=== PATIENT | female | born 1955 | race Hispanic/Latino ===

== ENCOUNTER 2025-11-07 08:10 | Observation (INO) | payer OTHER ==
[~2025-11-07] VITALS: Ht 165.1 cm; Wt 113.3 kg
[2025-11-07 08:54] LABS: IMMATURE GRANULOCYTE ABSOLUTE 0.01 K/uL (0-1); NUCLEATED RED BLOOD CELLS 0.0 % (0.0-0.19); PLATELET COUNT (AUTO) 156 K/uL (130-400); RED BLOOD CELL COUNT(AUTO) 4.25 MIL/uL (4.00-5.50); RED CELL DISTRIBUTION WIDTH 12.5 % (11.0-15.5); WHITE BLOOD COUNT (AUTO) 6.0 K/uL (4.8-10.8)
[2025-11-07 09:05] LABS: CREATININE 0.8 mg/dL (0.5-1.0); GLOMERULAR FILTR. RATE CALC 79.0 mL/min (>90); GLUCOSE,RANDOM 155.0 mg/dL (70-105); SODIUM SERUM 138.0 mmol/L (136-145); UREA NITROGEN, BLOOD 10.0 mg/dL (7-18)
[2025-11-07 09:10] LABS: CREATINE KINASE, TOTAL 45.0 U/L (21-232)
--- NOTE | 2025-11-07 09:28 | HMCIMG ---
EXAM: CT Head Without IV contrast. CLINICAL HISTORY: fall TECHNIQUE: Axial computed tomography images of the head/brain without intravenous contrast. COMPARISON: None provided. FINDINGS: BRAIN: No evidence of acute hemorrhage. No mass lesion. No CT evidence for acute territorial infarct. No midline shift or extra-axial collections. VENTRICLES: No hydrocephalus. ORBITS: The orbits are unremarkable. SINUSES AND MASTOIDS: The paranasal sinuses and mastoid air cells are clear. BONES: No fracture. SOFT TISSUES: Unremarkable. IMPRESSION: No acute intracranial abnormality. /[place]
--- NOTE | 2025-11-07 09:30 | EKG ---
[facility] Test Date: 2025-11-07 Test Time: 08:51:03 Pat Name: BHAKTI GARRIDO Department: ED Room: Gender: F Manager Shell: [birth year] : 1955 Requested By: FRANCISCO CORTEZ Order Number: [id number] Reading MD: Carolina Montalvo Measurements Intervals [place] Rate: 77 P: 39 AK: 168 QRS: -52 QRSD: 139 T: 16 QT: 422 QTc: 479 Interpretive Statements Sinus rhythm RBBB and LAFB No previous ECG available for comparison Electronically Signed On 11-07-2025 10:05:14 [employer]PER[employer] by Carolina Montalvo Please click the below link to view image of tracing.
--- NOTE | 2025-11-07 09:57 | HMCIMG ---
EXAM: CT Cervical Spine Without IV contrast. CLINICAL HISTORY: fall TECHNIQUE: Axial computed tomography images of the cervical spine without intravenous contrast. Sagittal and coronal reformatted images were generated. COMPARISON: None provided. FINDINGS: ALIGNMENT: Very minimal grade I anterolisthesis of C3 over C4 vertebral body. DEGENERATIVE CHANGES: Spondylotic changes with straightening of the spine. Reduced disc spaces from C4 to C7 level. Minimal disc osteophyte complexes at the C5-C6 and C6-C7 levels, probably indenting the bilateral exiting nerve roots. No obvious cord indentation SOFT TISSUES: The prevertebral soft tissues are within normal limits. BONES: No acute fracture or aggressive appearing osseous lesion. IMPRESSION: No acute cervical spine abnormality. Spondylotic changes with straightening of the spine, with reduced disc spaces from the C4 to C7 level. Minimal disc osteophyte complexes at the C5-C6 and C6-C7 levels, probably indenting the bilateral exiting nerve roots. Very minimal grade I anterolisthesis of C3 over C4 vertebral body. /[place]
--- NOTE | 2025-11-07 10:02 | HMCIMG ---
EXAM: CR Chest, 1 View. CLINICAL HISTORY: fall COMPARISON: None provided. FINDINGS: LUNGS: There is no mass, infiltrate, or acute pulmonary abnormality. PLEURAL SPACES: No pleural effusion or pneumothorax. MEDIASTINUM: The cardiomediastinal silhouette is within normal limits. BONES: No acute osseous abnormality. IMPRESSION: No acute cardiopulmonary pathology is evident. /[place]
--- NOTE | 2025-11-07 12:09 | ERN ---
ED Note History of Present Illness Stated Complaint: BACK PAIN Chief Complaint: Back Pain or Injury Time Seen by MD: 08:14 Dictation: 70-year-old female presenting to the emergency department for headache and neck pain as well as upper back pain after fall a few days ago. Patient also reports her blood pressures has been elevated. No chest pain no shortness a breath. Allergies: Coded Allergies: Penicillins (Unverified Allergy, Unknown, 11/07/25) Past Medical History Past Medical History: A-Fib, COPD, Diabetes-Type II, High Cholesterol, Hypertension Surgical History: Tonsillectomy, Other Surgical History Other: LEFT LEG SX Review of System Dictation Constitutional: Negative for fever,chills, and weight loss Eyes: Negative for injury, pain,redness, and discharge ENT: Negative for injury,pain or swelling Cardiovascular: Negative for chest pain, palpitations, and edema Respiratory: Negative for shortness of breath, cough, and wheezing, Abdomen/GI: Negative for abdominal pain, nausea, vomiting, diarrhea, and consti pation Back: Negative for injury and pain : Negative for injury, bleeding and discharge MS/Extremity: Per HPI Skin: Negative for rash, and discoloration Neuro: Per HPI Initial Vital Sign VS Vital Signs Date Time Temp Pulse Resp B/P (MAP) Pulse Ox O2 Delivery O2 Flow Rate FiO2 11/07/25 08:11 97.9 81 16 131/77 96 Room Air 0 11/07/25 08:41 21 Physical Exam Dictation General: awake, alert, appears uncomfortable Head/Face: Normocephalic, atraumatic Eyes: PERRL, EOMI, vision at baseline ENT: oral cavity clear, TMs clear, no signs of infection Neck: Trachea midline, supple, no nuchal rigidity Cardiovascular: RRR, normal S1/S2, No MRGs, no JVD Respiratory: CTAB, no respiratory distress, No rales or wheezes Abdomen: Soft, non-tender, non-distended, normal bowel sounds, no guarding or rebound. Skin: Warm, dry, normal turgor, no rash MS/Extremity: Pulses equal, no cyanosis, neurovascular intact, FROM Neuro: COAx4, GCS 15, strength 5/5, CN 2-12 intact, normal cerebellar exam, Results (Laboratory/Radiology) Laboratory/Radiology Laboratory Tests Test 12/10/25 08:46 White Blood Count 6.0 K/uL (4.8-10.8) Red Blood Count 4.25 MIL/uL (4.00-5.50) Hemoglobin 12.8 g/dL (12.0-16.0) Hematocrit 38.3 % (36-48) Mean Corpuscular Volume 90.1 fL (79-99) Mean Corpuscular Hemoglobin 30.1 pg (27.0-33.0) Mean Corpuscular Hemoglobin Concent 33.4 g/dL (32.0-36.0) Red Cell Distribution Width 12.5 % (11.0-15.5) Platelet Count 156 K/uL (130-400) Mean Platelet Volume 9.4 fL (7.5-10.5) Immature Granulocyte % (Auto) 0.2 % (0-1) Neutrophils (%) (Auto) 67.3 % (40.0-77.0) Lymphocytes (%) (Auto) 23.9 % (21.0-51.0) Monocytes (%) (Auto) 7.6 % (3.0-13.0) Eosinophils (%) (Auto) 0.7 % (0.0-8.0) Basophils (%) (Auto) 0.3 % (0.0-5.0) Neutrophils # (Auto) 4.1 K/uL (1.8-7.7) Lymphocytes # (Auto) 1.4 K/uL (1.0-4.8) Monocytes # (Auto) 0.5 K/uL (0.1-1.0) Eosinophils # (Auto) 0.04 K/uL (0.00-0.70) Basophils # (Auto) 0.02 K/uL (0.00-0.20) Absolute Immature Granulocyte (auto 0.01 K/uL (0-1) Nucleated Red Blood Cells 0.0 % (0.0-0.19) Sodium Level 138 mmol/L (136-145) Potassium Level 4.1 mmol/L (3.5-5.1) Chloride Level 103 mmol/L (101-111) Carbon Dioxide Level 28 mmol/L (21-32) Blood Urea Nitrogen 10 mg/dL (7-18) Creatinine 0.8 mg/dL (0.5-1.0) Glomerular Filtration Rate Calc 79 mL/min (>90) Random Glucose 155 mg/dL (70-105) H Total Calcium 8.6 mg/dL (8.5-10.1) Total Creatine Kinase 45 U/L (21-232) Troponin I High Sensitivity 12 ng/L (4-50) Labs Reviewed?: Yes EKG: (+) NSR, (+) nonspecific ST T wave chg, (+) nonspecific ST T wave chg, (+) unchanged ED Course ED Course Orders Procedure Category Date Status Time Ct Cervical Spine W/O CT 11/07/25 Resulted Contrast 08:39 12 Lead Ekg Tracing- EKG 11/07/25 Resulted Technical 08:39 Cbc With Differential LAB 11/07/25 Complete 08:39 Creatine Kinase, Total LAB 11/07/25 Complete 08:39 Basic Metabolic Panel LAB 11/07/25 Complete 08:39 Troponin I High LAB 11/07/25 Complete Sensitivity 08:39 Chest 1vw RAD 11/07/25 Resulted 08:39 Ct Head/Brain W/O CT 11/07/25 Resulted Contrast 08:39 Morphine 4mg Syg PHA 11/07/25 Complete (Morphine 4mg Syg) 08:39 Ondansetron 4mg Inj PHA 11/07/25 In Process (Zofran 4mg Inj) 08:39 Hydralazine 20mg Inj PHA 11/07/25 Complete (Apresoline 20mg In 10:39 Diazepam 5 Mg/Ml 2 Ml PHA 11/07/25 Complete Syg (Valium 5 Mg/M 10:39 Current Medications Medications (Trade) Dose Ordered Sig/Avis Route PRN Reason Start Time Stop Time Status Last Admin Dose Admin Diazepam (VALium 5 MG/ML 2 ML SYG) 5 mg ONCE STAT IVP 11/07/25 10:39 11/07/25 10:43 DC 11/07/25 10:47 Hydralazine HCl (APRESOLine 20MG INJ) 10 mg ONCE STAT IV 11/07/25 10:39 11/07/25 10:43 DC 11/07/25 10:46 Morphine Sulfate (morPHINE 4MG SYG) 4 mg ONCE STAT IVP 11/07/25 08:39 11/07/25 08:44 DC 11/07/25 09:28 Ondansetron HCl (zoFRAN 4MG INJ) 4 mg ONCE STAT IVP 11/07/25 08:39 11/07/25 08:44 DC 11/07/25 09:27 Vital Signs Date Time Temp Pulse Resp B/P (MAP) Pulse Ox O2 Delivery O2 Flow Rate FiO2 11/07/25 11:07 98.6 82 16 132/62 96 Room Air* 0 21 11/07/25 10:46 76 210/105 11/07/25 10:34 98.6 76 16 210/105 95 Room Air* 0 21 11/07/25 08:41 98.6 76 18 182/142 98 Room Air* 0 21 11/07/25 08:11 97.9 81 16 131/77 96 Room Air 0 Medical Decision Making MDM MDM: Differential diagnosis: Rationale: Tests considered and ordered secondary to shared decision making include: labs, ECG and radiology Previous outside records reviewed: Old ER visits. Risk of complication and/or morbidity or mortality of patient management: None Medications-Per medication reconciliation Need for hospitalization: Patient does meet criteria for hospitalization. Need for emergency major/minor surgery: No There are no social concerns with this patient. Prescription drug management Prescriptions will include symptomatic care Patient's prior external medical records from other ER visits were reviewed by me as indicated. Prior testing and results from previous visits were reviewed. Prior tests were taken into account with medical decision making and resource utilization, independent historian/historians were used to obtain complete medical history. I independently interpreted the test that were performed, results were reviewed by me and considered findings on radiology if ordered. Medical management and examination interpretation discussions were had by me with other qualified healthcare professionals as indicated for the patient's care. 70-year-old female with ground level fall, stable exam and hypertensive episode, given pain meds and hypertension medication, admitting for further care and evaluation. DX & DISP Disposition: Inpatient Departure Impression: Primary Impression: Episode of hypertension Additional Impression: Fall Condition: Stable Referrals: KULDIP JESUS MD (PCP) FRANCISCO CORTEZ MD Nov 07, 2025 12:08
[2025-11-07 12:30] LABS: APPEARANCE,URINE CLOUDY (CLEAR); GLUCOSE, URINE (UA) NEGATIVE (NEGATIVE); LEUKOCYTE ESTERASE ,URINE 500 Leu/uL (NEGATIVE); NITRATE,URINE 1+ (NEGATIVE); OCCULT BLOOD,URINE NEGATIVE (NEGATIVE)
[2025-11-07 12:30] LABS: INR 1.21 (0.85-1.15)
[2025-11-07 12:32] LABS: ADD UA MICROSCOPIC YES
[2025-11-07 12:34] LABS: ASPARTATE AMINOTRANSFERASE 48.0 U/L (10-37); TOTAL PROTEIN, SERUM 6.6 g/dL (6.0-8.3)
[2025-11-07 13:00] LABS: SQUAMOUS EPITHELIAL CELL,UR FEW /HPF (0-2)
[2025-11-07] MEDS ORDERED: DEXTROSE 50%-WATER 50 ML DISP.SYRIN IV PRN (13:00)
[2025-11-07] MEDS ORDERED: GLUCAGON 1MG KIT 1 MG ML IM PRN (13:00)
[2025-11-07 13:04] VITALS: PULSE 86; RESP 21; O2SAT 97
[2025-11-07] MEDS: LIDOCAINE 5% TOPICAL PATCH TP SCH (13:14)
[2025-11-07] MEDS: LISINOPRIL 20 MG TABLET PO SCH (13:15)
[2025-11-07] MEDS: 0.9%NACL 1000ML 1,000 ML IV SCH (13:16)
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
--- NOTE | 2025-11-07 14:40 | HMCIMG ---
EXAM: CT Chest Without IV contrast. CLINICAL HISTORY: recent fall, mid sternal chest pain, mid back pain as well, r/o any abnorma TECHNIQUE: Axial computed tomography images of the chest without intravenous contrast. COMPARISON: None provided. FINDINGS: LUNGS: 6 mm pulmonary nodule inferior right upper lobe (series 2, image 24), requires follow up imaging based on Fleischner's criteria. Otherwise lungs are clear. PLEURAL SPACES: No evidence of pneumothorax. No pleural effusion. HEART: No cardiomegaly. No significant pericardial effusion. LYMPH NODES: No lymphadenopathy is evident. UPPER ABDOMEN: The upper abdominal solid organs are unremarkable. BONES: No acute osseous abnormality. IMPRESSION: 1. 6 mm pulmonary nodule inferior right upper lobe (series 2, image 24), requires follow up imaging based on Fleischner's criteria. 2. Otherwise lungs are clear. 3. No acute osseous findings. /[place]
--- NOTE | 2025-11-07 15:15 | HMCIMG ---
EXAM: US for Deep Venous Thrombosis, bilateral Lower Extremity. CLINICAL HISTORY: Leg Pain and Swelling TECHNIQUE: Real-time ultrasound scan of the veins of the bilateral lower extremity with color Doppler flow, spectral waveform analysis and compression. COMPARISON: None provided. FINDINGS: DEEP VEINS: The common femoral, superficial femoral, and popliteal veins are echolucent and compressible. There is normal color Doppler flow throughout. The visualized calf veins appear patent. SOFT TISSUES: No popliteal fossa cyst or other abnormalities. IMPRESSION: No deep venous thrombosis evident on bilateral lower extremity examination. /[place]
[2025-11-07 15:26] LABS: CREATINE KINASE, TOTAL 42.0 U/L (21-232)
--- NOTE | 2025-11-07 16:05 | NUR ---
DCP:HOME Pt currently lives at home alone. Pt states that she has a walker, cane, and wheelchair at home that she uses to ambulate. Pt has a provider that works with her 20 hrs a week to assist with all ADLs, home management, and meals. PCP is Dr. Benigno Corley and uses [facility] for any RX needs. At [place] pt will want to go home and family can assist with transportation.
[2025-11-07] MEDS: AZTREONAM 1 GM VIAL IVPB SCH (18:34)
[2025-11-07 20:00] VITALS: O2SAT 96
[2025-11-07 20:08] VITALS: PULSE 84; RESP 18; O2SAT 97
[2025-11-07] MEDS: RIVAROXABAN 20 MG TABLET PO SCH (20:40)
[2025-11-07] MEDS: FAMOTIDINE 20MG TAB PO SCH (20:40)
[2025-11-07] MEDS: (Icosapent Ethyl (Vascepa) 1 GM) PO SCH (20:41)
--- NOTE | 2025-11-07 22:42 | CONS ---
CONSULT NOTE: CARDIOLOGY Reason for consult: Atrial fibrillation, fall HPI/story at presentation: This is a pleasant 7-year-old female with past medical history as below presents for management of a fall that she had at home. Patient has been having issues with weakness but came in with a mechanical fall, no syncopal spell. Cardiology was consulted because of known atrial fibrillation, EKG changes. Past medical history: See below Allergies, Meds See chart Review of systems Review of Systems Constitutional: Negative for chills and fever. HENT: Negative for ear discharge and ear pain. Eyes: Negative for photophobia and discharge. Respiratory: Negative for cough, sputum production and stridor. Cardiovascular: Negative for chest pain and palpitations. Gastrointestinal: Negative for diarrhea and vomiting. Genitourinary: Negative for frequency. Musculoskeletal: Negative for myalgias. Skin: Negative for rash. Neurological: Negative for focal weakness and seizures. Endo/Heme/Allergies: Negative for polydipsia. Psychiatric/Behavioral: Negative for hallucinations. Vitals see chart PHYSICAL EXAMINATION GENERAL: The patient is alert and oriented*3 HEENT: Nonicteric sclerae, non traumatic HEART: Regular rate and rhythm with no murmurs LUNGS: Clear to auscultation bilaterally ABDOMEN: No acute issues, non tender GENITAL, RECTAL: deferred SKIN: No rash NEUROLOGIC: NFND EXTREMITIES: No edema ASSESSMENT ATRIAL FIBRILLATION History of FALL At presentation, mechanical HYPERTENSION, OBESITY, HYPERLIPIDEMIA, SLEEP APNEA, DIABETES CORE MEASURES Pending OTHER MEDICAL PROBLEMS Bronchitis Left knee replacement PLAN 11/07/2025 patient is currently lethargic but no active cardiovascular complaints at this time. No history of atrial fibrillation, currently on Xarelto for anticoagulation. Rate remain controlled at this time. Also on statins. Echocardiogram has been ordered and pending. Further recommendations post. Seen and examined 11/07/2025 at around 9 PM. ATTESTATION I was involved substantially in the care of this patient Number and complexity of problems addressed: 1 acute illness with systemic features Amount and or complexity of data Review of prior external note(s) from each unique source: 2+ Ordering of each unique test : 1 Review of the result(s) of each unique test: 2+ Assessment requiring an independent historian(s): No Independent interpretation of test performed by another MD/QHCP/appropriate source (not separately reported) : No Discussion of management or test interpretation with external MD/QHCP/appropriate source (not separately reported) : No Risk status (cardiac, billing related): Moderate LILI MCDANIELS MD Nov 07, 2025 22:42
[2025-11-07 23:30] VITALS: BP 104/56; PULSE 79; RESP 20; TEMP 98.8
--- NOTE | 2025-11-07 23:30 | NUR ---
ADMISSION NOTE PATIENT ARRIVED VIA ER. PATIENT ALERT, ORIENTED, ABLE TO MAKE NEEDS KNOWN. PATIENT MEDICATION RECONCILIATION DONE, CONFIRMED MEDICATIONS WITH PATIENT. PATIENT ORIENTED TO CALL LIGHT, AND UNIT FALL POLICIES. CALL LIGHT WITHIN REACH OF PATIENT.
[2025-11-08] VITALS (16 sets, daily range): BP systolic 135–147; BP diastolic 65–74; PULSE 73–93; RESP 17–20; TEMP 98.1–98.7; O2SAT 95–100
[2025-11-08 06:10] LABS: IMMATURE GRANULOCYTE ABSOLUTE 0.03 K/uL (0-1); NUCLEATED RED BLOOD CELLS 0.0 % (0.0-0.19); PLATELET COUNT (AUTO) 186 K/uL (130-400); RED BLOOD CELL COUNT(AUTO) 4.25 MIL/uL (4.00-5.50); RED CELL DISTRIBUTION WIDTH 12.7 % (11.0-15.5); WHITE BLOOD COUNT (AUTO) 7.3 K/uL (4.8-10.8)
[2025-11-08 06:34] LABS: CREATININE 0.7 mg/dL (0.5-1.0); GLOMERULAR FILTR. RATE CALC 93.0 mL/min (>90); GLUCOSE,RANDOM 149.0 mg/dL (70-105); SODIUM SERUM 139.0 mmol/L (136-145); UREA NITROGEN, BLOOD 12.0 mg/dL (7-18)
[2025-11-08] MEDS: LORATAdine 10 mg 10 MG TABLET PO SCH (08:47)
--- NOTE | 2025-11-08 11:15 | NUR ---
Spoke to patient who stated she had a headache and needed something for pain. Tamia, nurse, notified.
[2025-11-08 12:07] LABS: ASPARTATE AMINOTRANSFERASE 36.0 U/L (10-37); TOTAL PROTEIN, SERUM 6.5 g/dL (6.0-8.3)
--- NOTE | 2025-11-08 14:00 | NUR ---
SPOKE TO PATIENT AND HER SISTER AT BEDSIDE. SIS TER STATES PATIENT WILL GO HOME WITH HER, SHE DOES NOT MOVE WELL ENOUGH TO GO HOME ALONE. CONCERNED RE PLAN OF CARE, ADVISED HER THAT THIS CM HAD ALREADY SECURED AN APPOINTMENT AT [facility] FOR WEDNESDAY AT 330 PM. ADVISED HER THAT THE MEDICATION FO THE MUSCLE SPASM AND BACK PAIN WILL TAKE SOME TIME TO WORK, AND GENTLE EXERCISE/STRETCHING WILL BE HELPFUL. VERBALIZED UNDERSTANDING OF SAME. DC PLAN: HOME WITH SISTER
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
--- NOTE | 2025-11-08 21:14 | PN ---
CARDIOLOGY Reason for consult: Atrial fibrillation, fall HPI/story at presentation: This is a pleasant 7-year-old female with past medical history as below presents for management of a fall that she had at home. Patient has been having issues with weakness but came in with a mechanical fall, no syncopal spell. Cardiology was consulted because of known atrial fibrillation, EKG changes. Past medical history: See below Allergies, Meds See chart Review of systems Review of Systems Constitutional: Negative for chills and fever. HENT: Negative for ear discharge and ear pain. Eyes: Negative for photophobia and discharge. Respiratory: Negative for cough, sputum production and stridor. Cardiovascular: Negative for chest pain and palpitations. Gastrointestinal: Negative for diarrhea and vomiting. Genitourinary: Negative for frequency. Musculoskeletal: Negative for myalgias. Skin: Negative for rash. Neurological: Negative for focal weakness and seizures. Endo/Heme/Allergies: Negative for polydipsia. Psychiatric/Behavioral: Negative for hallucinations. Vitals see chart PHYSICAL EXAMINATION GENERAL: The patient is alert and oriented*3 HEENT: Nonicteric sclerae, non traumatic HEART: Regular rate and rhythm with no murmurs LUNGS: Clear to auscultation bilaterally ABDOMEN: No acute issues, non tender GENITAL, RECTAL: deferred SKIN: No rash NEUROLOGIC: NFND EXTREMITIES: No edema ASSESSMENT ATRIAL FIBRILLATION History of FALL At presentation, mechanical HYPERTENSION, OBESITY, HYPERLIPIDEMIA, SLEEP APNEA, DIABETES CORE MEASURES Pending OTHER MEDICAL PROBLEMS Bronchitis Left knee replacement PLAN 11/07/2025 patient is currently lethargic but no active cardiovascular complaints at this time. No history of atrial fibrillation, currently on Xarelto for anticoagulation. Rate remain controlled at this time. Also on statins. Echocardiogram has been ordered and pending. Further recommendations post. Seen and examined 11/07/2025 at around 9 PM. 11/08/2025 Mental status is better, remains on anticoagulation with Xarelto, echocardiogram with normal function. Continue conservative measures from a cardiac standpoint. Seen and examined 11/08/2025 at around 9 PM ATTESTATION I was involved substantially in the care of this patient Number and complexity of problems addressed: 1 acute illness with systemic features Amount and or complexity of data Review of prior external note(s) from each unique source: 2+ Ordering of each unique test : 1 Review of the result(s) of each unique test: 2+ Assessment requiring an independent historian(s): No Independent interpretation of test performed by another MD/SAIRAP/appropriate source (not separately reported) : No Discussion of management or test interpretation with external MD/QBABATUNDEP/appropriate source (not separately reported) : No Risk status (cardiac, billing related): Moderate Vitals/Labs Vital Signs Date Time Temp Pulse Resp B/P (MAP) Pulse Ox O2 Delivery O2 Flow Rate FiO2 11/08/25 20:10 93 20 N/A Room Air 21 11/08/25 15:42 98.8 138/66 96 11/08/25 08:00 0 Laboratory Tests 11/08/25 05:54 Medications Current Medications Morphine Sulfate 4 mg ONCE STAT IVP Last administered on 11/07/25at 09:28; Start 11/07/25 at 08:39; Stop 11/07/25 at 08:44; Status DC Ondansetron HCl 4 mg ONCE STAT IVP Last administered on 11/07/25at 09:27; Start 11/07/25 at 08:39; Stop 11/07/25 at 08:44; Status DC Hydralazine HCl 10 mg ONCE STAT IV Last administered on 11/07/25at 10:46; Start 11/07/25 at 10:39; Stop 11/07/25 at 10:43; Status DC Diazepam 5 mg ONCE STAT IVP Last administered on 11/07/25at 10:47; Start 11/07/25 at 10:39; Stop 11/07/25 at 10:43; Status DC Acetaminophen 650 mg Q8H PO Last administered on 11/08/25at 14:08; Start 11/07/25 at 12:30; Stop 12/07/25 at 12:29 Lidocaine 1 patch DAILY TP Last administered on 11/08/25at 08:47; Start 11/07/25 at 12:30; Stop 12/07/25 at 12:29 Morphine Sulfate 2 mg Q6H PRN IVP Last administered on 11/08/25at 11:42; Start 11/07/25 at 12:30; Stop 11/14/25 at 12:29 Ipratropium [place] 0.5 mg Q6H PRN IH Last administered on 11/08/25at 20:09; Start 11/07/25 at 12:30; Stop 12/07/25 at 12:29 Famotidine 20 mg BID PO Last administered on 11/08/25at 08:46; Start 11/07/25 at 21:00; Stop 12/07/25 at 20:59 Hydralazine HCl 10 mg Q6H PRN IV; Start 11/07/25 at 12:30; Stop 12/07/25 at 12:29 Insulin Human Regular INSULIN SLIDING SCAL... ACHS SQ Last administered on 11/08/25at 11:54; Start 11/07/25 at 16:30; Stop 12/07/25 at 16:29 Dextrose 50 ml AD PRN IV; Start 11/07/25 at 13:00; Stop 12/07/25 at 12:59 Glucagon 1 mg AD PRN IM; Start 11/07/25 at 13:00; Stop 12/07/25 at 12:59 Lisinopril 20 mg Q24H PO Last administered on 11/07/25at 13:15; Start 11/07/25 at 13:00; Stop 12/07/25 at 12:59 Metoprolol Tartrate 50 mg Q12H PO Last administered on 11/08/25at 14:08; Start 11/07/25 at 13:00; Stop 12/07/25 at 12:59 Pantoprazole Sodium 40 mg Q24H PO; Start 11/07/25 at 13:00; Stop 11/07/25 at 13:01; Status DC Montelukast Sodium 10 mg HS PO Last administered on 11/07/25at 20:40; Start 11/07/25 at 21:00; Stop 12/07/25 at 20:59 Fluticasone Propionate 1 SPRAY BID EN Last administered on 11/08/25at 08:47; Start 11/07/25 at 21:00; Stop 12/07/25 at 20:59 Duloxetine HCl 60 mg DAILY PO Last administered on 11/08/25at 08:46; Start 11/08/25 at 09:00; Stop 12/08/25 at 08:59 Atorvastatin Calcium 40 mg HS PO Last administered on 11/07/25at 20:41; Start 11/07/25 at 21:00; Stop 12/07/25 at 20:59 Sodium Chloride 1,000 ml @ 50 mls/hr Q20H IV Last administered on 11/07/25at 13:16; Start 11/07/25 at 13:00; Stop 12/07/25 at 12:59 Methocarbamol 500 mg Q12H PO Last administered on 11/08/25at 14:08; Start 11/07/25 at 13:00; Stop 12/07/25 at 12:59 Aztreonam 1 gm Q8H IVPB Last administered on 11/08/25at 14:07; Start 11/07/25 at 13:30; Stop 11/17/25 at 13:29 Loratadine 10 mg DAILY PO Last administered on 11/08/25at 08:47; Start 11/08/25 at 09:00; Stop 12/08/25 at 08:59 Rivaroxaban 20 mg HS PO Last administered on 11/07/25at 20:40; Start 11/07/25 at 21:00; Stop 12/07/25 at 20:59 Home Med (Icosapent Ethyl (Vasce... BID PO; Start 11/07/25 at 21:00; Stop 12/07/25 at 20:59 LILI MCDANIELS MD Nov 08, 2025 21:14
[2025-11-09] VITALS: BP 167/89; PULSE 87; RESP 20; TEMP 98.3
[2025-11-09 04:00] VITALS: BP 140/83; PULSE 78; RESP 20; TEMP 98.6
[2025-11-09 04:39] LABS: IMMATURE GRANULOCYTE ABSOLUTE 0.03 K/uL (0-1); NUCLEATED RED BLOOD CELLS 0.0 % (0.0-0.19); PLATELET COUNT (AUTO) 191 K/uL (130-400); RED BLOOD CELL COUNT(AUTO) 4.28 MIL/uL (4.00-5.50); RED CELL DISTRIBUTION WIDTH 12.7 % (11.0-15.5); WHITE BLOOD COUNT (AUTO) 8.0 K/uL (4.8-10.8)
[2025-11-09 04:55] LABS: ASPARTATE AMINOTRANSFERASE 41.0 U/L (10-37); CREATININE 0.7 mg/dL (0.5-1.0); GLOMERULAR FILTR. RATE CALC 93.0 mL/min (>90); GLUCOSE,RANDOM 152.0 mg/dL (70-105); SODIUM SERUM 139.0 mmol/L (136-145); TOTAL PROTEIN, SERUM 6.7 g/dL (6.0-8.3); UREA NITROGEN, BLOOD 13.0 mg/dL (7-18)
[2025-11-09 07:14] VITALS: PULSE 90; RESP 20
[2025-11-09 07:16] VITALS: PULSE 87; RESP 20; O2SAT 94
[2025-11-09 09:09] VITALS: BP 144/91; PULSE 84; RESP 20; TEMP 98.4
[2025-11-09 12:38] VITALS: BP 144/82; PULSE 95; RESP 20; TEMP 98.5
[2025-11-09] MEDS: MAGNESIUM 2GM PREMIX 50ML 50 ML IV PRN (14:30)
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
--- NOTE | 2025-11-09 15:40 | NUR ---
DISCHARGE SISTER AT BEDSIDE. PT A&OX4. PT AWARE OF APPOINTMENT WITH DR. FREY ON 11/12/25 AT 09:45AM AND PT STATES APPOINTMENT WITH PCP ON 11/12/25 AT 1520. PT AWARE OF NEW PRESCRIPTIONS SENT TO PHARMACY. TEACHINGS GIVEN TO PT FOR BP LOG, FALL PRECAUTIONS, AND MEDICATIONS.
--- NOTE | 2025-11-09 15:49 | NUR ---
HOME MEDS HOME MEDICATIONS: JEREMY HANDED TO PT.
--- NOTE | 2025-11-09 19:00 | NUR ---
NIECE CALLED VERY UPDSET STATES SHE COULD NOT UNDERSTAND WHY HER AUNT HAD BEEN ADMITTED AND WHAT MEDS SHE WAS ON. STATES HER MOTHER CANNOT EXPLAIN. SUMMARY OF ADMISSION AND PLAN OF CARE GIVEN. NIECE STATED MUCH MORE AWARE/REASSURE. ENCOURAGED NIECE TO ASSIST IN ENSURING THAT PATIENT CONTINUES MEDS ORDERED, GENTLE EXERCISE, TAKING BP DAILY AND RECORDING. VERBALIZED UNDERSTANDING OF SAME
--- NOTE | 2025-11-10 13:11 | HMCSR ---
APPROVED REPORT EXAM: Two-dimensional and M-mode echocardiogram with Doppler and color Doppler. INDICATION ICD: Pre-Op 2D Dimensions RVDd 3.3 cm LVEF(%) 88.8 (>50%) LVED Vol(simp.) 96.0 mL IVSd 1.0 (0.7-1.1cm) FS(%) 58 % LVES Vol(simp.) 35.0 mL LVDd 3.6 (3.8-5.6cm) LA (2D) 3.5 (1.6-4.0cm) LVEF(%, simp.) 63 % PWd 1.1 (0.7-1.1cm) Ao Root(2D) 2.9 (2.0-3.7cm) LA ESV INDEX (BP) 19.53 mL/m2 LVDs 1.5 (2.5-4.0cm) LVOT diam 2.2 (1.8-2.4cm) IVC diam 2.1 cm Deformation Strain Apical 4 -17.3 % Apical 2 -15.9 % Apical 3 -18.0 % Global Strain -17.1 % M-Mode Dimensions EPSS 0.8 cm LA (MM) 3.6 (1.6-4.0cm) Ao Root(MM) 2.5 (2.0-3.7cm) Aortic Valve AoV Vmax 1.6 m/s Ao Peak GR 10.1 mmHg LVOT Vmax 1.1 m/s AoV VTI 0.4 m Ao Mean GR 6.1 mmHg LVOT VTI 0.24 m POWER (VMAX) 2.62 cm2 POWER (VTI) 2.4 cm2 Mitral Valve MV E Vmax 66.7 cm/s DECEL Time 320 ms MV A Vmax 104.0 cm/s P 1/2 T 66 ms E/A ratio 0.6 MVA (PHT) 3.4 cm2 TDI E/E' Medial 10.9 E/E' Lateral 8.7 Medial E' Peak V 6.14 cm/s Lateral E' Peak V 7.71 cm/s Left Ventricle The left ventricle is normal size. Normal wall motion There is normal left ventricular wall thickness. LVEF is 60-65%. The left ventricular diastolic function is normal. Right Ventricle The right ventricle is normal size. The right ventricular systolic function is normal. Atria The left atrium size is normal. The right atrium size is normal. Aortic Valve The aortic valve is normal in structure. No aortic regurgitation is present. There is no aortic valvular stenosis. Mitral Valve The mitral valve is normal in structure. There is no evidence of significant mitral regurgitation. There is no mitral valve stenosis. Tricuspid Valve The tricuspid valve is normal in structure. There is no tricuspid valve regurgitation noted. Pulmonic Valve The pulmonary valve is normal in structure. There is no pulmonic valvular regurgitation. Great Vessels The aortic root is normal in size. The IVC is normal in size and collapses >50% with inspiration. Pericardium There is no pericardial effusion. Conclusion LVEF is 60-65%. The left ventricular diastolic function is normal. There is normal left ventricular wall thickness. The left ventricle is normal size. Normal wall motion There is no pericardial effusion. Study quality was adequate
== END 2025-11-09 15:55 | disposition home or self-care (01) ==
LOC: EDH 08:10 → UNDOADMOB 12:02 → EDHIP 12:02 → INTOOBSV 12:02 → EDHIP 23:21 → 3DH 23:21
PROVIDERS: ADMIT Internal Medicine; ATTEND Internal Medicine
DX: I16.0 Hypertensive urgency (principal); K75.9 Inflammatory liver disease, unspecified; E11.9 Type 2 diabetes mellitus without complications; N39.0 Urinary tract infection, site not specified; E66.01 Morbid (severe) obesity due to excess calories; I10 Essential (primary) hypertension; E78.00 Pure hypercholesterolemia, unspecified; E83.42 Hypomagnesemia; G47.30 Sleep apnea, unspecified; M54.2 Cervicalgia; M54.6 Pain in thoracic spine; R51.9 Headache, unspecified; R53.1 Weakness; R60.1 Generalized edema; R07.89 Other chest pain; Z79.01 Long term (current) use of anticoagulants; Z68.41 Body mass index [BMI] 40.0-44.9, adult; Z79.899 Other long term (current) drug therapy; Z88.0 Allergy status to penicillin
CPT/HCPCS: 99285; 96376 ×2; 96361 ×2; 96365; 96375 ×2; 83036; 84443; 82550 ×2; 80076 ×2; 84484 ×2; 80048 ×2; 85025 ×3; 85610; 85730; 85651; 87086 ×2; 82948 ×8; 86140; 81001; 36415 ×3; 71045; 70450; 72125; 71250; 93970; 93005; 94640; 84145; 96366 ×2; 83735 ×2; 93306; 93356; 97161; 97116 ×2; 97530 ×5; 80053; 87186; J2270 ×3; J3360; J0360; J2405; J3490 ×6; J1815 ×2; G0378 ×4; J3475; 96374